=== PATIENT | male | born 1940 | race Caucasian/White ===

== ENCOUNTER 2021-11-28 15:10 | Emergency (ER) | payer MEDICARE, OTHER ==
[2021-11-28] MEDS ORDERED: Sodium Chloride 0.9% 10 ML Syringe FLUSH PRN (15:19)
[2021-11-28] MEDS ORDERED: Tenecteplase 50 MG Kit IV ONE (15:20)
[2021-11-28] MEDS ORDERED: Heparin Sodium 5,000 Units/ML Vial IVPUSH ONE (15:20)
[2021-11-28] MEDS ORDERED: Heparin Sodium/D5W 25,000 UNITS/500 ML BAG IV SCH (15:30)
[2021-11-28] MEDS ORDERED: Morphine 4 MG/ML Syringe IVPUSH ONE (15:43)
[2021-11-28] MEDS ORDERED: Morphine 4 MG/ML Syringe ONE (15:45)
[2021-11-28 18:00] LABS: CORONAVIRUS COVID-19 NAA NEGATIVE (NEGATIVE)
== END 2021-11-28 16:35 ==
LOC: JD.ED 15:10
DX: I21.11 ST elevation (STEMI) myocardial infarction involving right coronary artery (principal)
CPT/HCPCS: 0241U; 36415; 71045; 80053; 84484; 85025; 85730; 92977; 93005; 96365; 96375; 99285; J1644; J2270; J3101; J3490

== ENCOUNTER 2022-05-09 15:39 | Emergency (ER) | payer OTHER ==
[2022-05-09] MEDS ORDERED: Sodium Chloride 0.9% 10 ML Syringe FLUSH PRN (16:10)
[2022-05-09] MEDS ORDERED: Metoprolol Tartrate 5 MG/5 ML SDV IVPUSH ONE (16:12)
[2022-05-09] MEDS ORDERED: Metoprolol Tartrate 50 MG Tab PO ONE (16:48)
[2022-05-09 17:19] LABS: ESTIMATED GFR 55 mL/min (>60)
== END 2022-05-09 20:13 | disposition home or self-care (01) ==
LOC: JD.ED 15:39 → SUPCPDRO 15:39 → JD.ED 20:13
DX: I11.0 Hypertensive heart disease with heart failure (principal); I50.9 Heart failure, unspecified; R00.0 Tachycardia, unspecified; I25.10 Atherosclerotic heart disease of native coronary artery without angina pectoris; E78.00 Pure hypercholesterolemia, unspecified; I25.2 Old myocardial infarction; Z20.822 Contact with and (suspected) exposure to COVID-19; Z79.899 Other long term (current) drug therapy
CPT/HCPCS: 36415; 71045; 80053; 83880; 84484; 85025; 85379; 87635; 93005; 96374; 99285; A9270; J3490; 93010; 99284; U0002

== ENCOUNTER → 2022-05-12 | Day surgery (SDC) | payer OTHER ==
[~2022-05-12] MED LIST: Cefuroxime 10 MG/ML SYRINGE EYELF SCH; Lidocaine 1% PF 2 ML SDV INJECT SCH; Pilocarpine 4% Ophth Soln 15 ML Bot EYELF SCH
[2022-05-12] MEDS: Polymyxin B/Trimethoprim 10 ML Bottle EYELF SCH ×3 (14:30→16:41)
[2022-05-12] MEDS: Brimonidine 0.2% Ophth Soln 5 ML Bottle EYELF SCH ×3 (14:35→16:20)
[2022-05-12] MEDS: Phenylephrine 2.5% Ophth Soln 2 ML Bot EYELF SCH ×5 (14:40→16:41)
[2022-05-12] MEDS: Tropicamide 1% Ophth Soln 15 ML Bottle EYELF SCH ×4 (14:45→15:28)
[2022-05-12] MEDS: Tetracaine HCl/PF 0.5% 4 ML Bottle EYEBOTH SCH ×4 (15:43→16:08)
== END ==
LOC: JD.SDS 12:55
PROVIDERS: ATTEND Ophthalmology
DX: H25.813 Combined forms of age-related cataract, bilateral (principal); H26.131 Total traumatic cataract, right eye; H21.531 Iridodialysis, right eye; H35.3131 Nonexudative age-related macular degeneration, bilateral, early dry stage; H35.363 Drusen (degenerative) of macula, bilateral; H40.003 Preglaucoma, unspecified, bilateral; H16.223 Keratoconjunctivitis sicca, not specified as Sjogren's, bilateral; H21.26 Iris atrophy (essential) (progressive); E78.00 Pure hypercholesterolemia, unspecified; I10 Essential (primary) hypertension; Z79.82 Long term (current) use of aspirin; Z79.899 Other long term (current) drug therapy; Z86.16 Personal history of COVID-19
CPT/HCPCS: 66984; J0697; V2632

== ENCOUNTER 2022-06-09 07:38 | Day surgery (SDC) | payer OTHER ==
[2022-06-09] MEDS: Polymyxin B/Trimethoprim 10 ML Bottle EYERT SCH ×4 (07:05→10:54)
[2022-06-09] MEDS: Brimonidine 0.2% Ophth Soln 5 ML Bottle EYERT SCH ×4 (07:10→10:53)
[2022-06-09] MEDS: Phenylephrine 2.5% Ophth Soln 2 ML Bot EYERT SCH ×6 (07:16→10:46)
[2022-06-09] MEDS: Tropicamide 1% Ophth Soln 15 ML Bottle EYERT SCH ×4 (07:20→07:58)
[2022-06-09] MEDS: Tetracaine HCl/PF 0.5% 4 ML Bottle EYEBOTH SCH ×5 (08:05→10:47)
[2022-06-09] MEDS: Lidocaine 1% PF 2 ML SDV INJECT SCH ×2 (08:22→10:50)
[2022-06-09] MEDS: Cefuroxime 10 MG/ML SYRINGE EYERT SCH ×2 (08:40→10:53)
[2022-06-09] MEDS: Pilocarpine 4% Ophth Soln 15 ML Bot EYERT SCH ×2 (08:41→10:54)
== END 2022-06-09 08:55 | disposition home or self-care (01) ==
LOC: JD.SDS 07:38
PROVIDERS: ATTEND Ophthalmology
DX: H26.131 Total traumatic cataract, right eye (principal); H35.363 Drusen (degenerative) of macula, bilateral; H35.3131 Nonexudative age-related macular degeneration, bilateral, early dry stage; H21.26 Iris atrophy (essential) (progressive); H21.81 Floppy iris syndrome; H40.003 Preglaucoma, unspecified, bilateral; I10 Essential (primary) hypertension; Z98.890 Other specified postprocedural states; E78.00 Pure hypercholesterolemia, unspecified; Z86.16 Personal history of COVID-19; Z96.1 Presence of intraocular lens; Z79.82 Long term (current) use of aspirin; Z79.899 Other long term (current) drug therapy
CPT/HCPCS: 66982; J0697

== ENCOUNTER 2022-06-30 15:31 | Emergency (ER) | payer OTHER, MEDICARE, BC ==
[2022-06-30] MEDS ORDERED: Albuterol/Ipratropium 3.0-0.5 MG/3 ML Neb Soln NEB ONE (15:57)
[2022-06-30] MEDS ORDERED: methylPREDNISolone Sodium Succinate 125 MG/2 ML SDV IVPUSH ONE (15:57)
[2022-06-30] MEDS ORDERED: Magnesium Sulfate/Water 2 GM in Premix Bag 1 BAG IV ONE (15:59)
[2022-06-30] MEDS ORDERED: Iopamidol 755 MG/ML 50 ML Bottle IVPUSH ONE (16:06)
[2022-06-30] MEDS ORDERED: Iopamidol 755 Mg/ML 100 ML Bottle IVPUSH ONE (16:06)
[2022-06-30 17:35] LABS: CORONAVIRUS COVID-19 NAA NEGATIVE (NEGATIVE)
== END 2022-06-30 21:51 | disposition home or self-care (01) ==
LOC: JD.ED 15:31
DX: I11.0 Hypertensive heart disease with heart failure (principal); I50.9 Heart failure, unspecified; E78.00 Pure hypercholesterolemia, unspecified; I25.2 Old myocardial infarction; R74.02 Elevation of levels of lactic acid dehydrogenase [LDH]; R79.1 Abnormal coagulation profile; Z95.5 Presence of coronary angioplasty implant and graft; Z20.822 Contact with and (suspected) exposure to COVID-19
CPT/HCPCS: 0240U; 36415; 71045; 71045-26; 71275; 71275-26; 74177; 74177-26; 80053; 81003; 83605; 83690; 83880; 84484; 85025; 85610; 87040; 93005; 94640; 96365; 96366; 96375; 99285-25; J2930; J3475; J7620-GY; Q9967

== ENCOUNTER 2025-04-25 13:04 | Emergency (ER) | payer OTHER | END 2025-04-25 15:55 | disposition home or self-care (01) | LOC: JD.ED 13:04 | DX: S93.401A Sprain of unspecified ligament of right ankle, initial encounter (principal); S89.91XA Unspecified injury of right lower leg, initial encounter; E78.00 Pure hypercholesterolemia, unspecified; I10 Essential (primary) hypertension; I25.2 Old myocardial infarction; Z86.16 Personal history of COVID-19; Z79.82 Long term (current) use of aspirin; Z79.02 Long term (current) use of antithrombotics/antiplatelets; Z79.899 Other long term (current) drug therapy; X50.1XXA Overexertion from prolonged static or awkward postures, initial encounter; Y93.89 Activity, other specified | CPT/HCPCS: 73501-26-RT; 73501-RT; 73560-26-LT; 73560-26-RT; 73560-LT; 73560-RT; 73600-26-RT; 73600-RT; 99283 ==